=== PATIENT | male | born 1985 | race Caucasian/White ===

== ENCOUNTER 2019-11-12 18:33 | Emergency (ER) | payer SELFPAY ==
[2019-11-12] MEDS ORDERED: Bupivacaine 0.5% 10 ML SDV ONE (18:49)
--- NOTE | 2019-11-12 19:02 | EDM.PDOC ---
<Wilfredo Parson - Last Filed: 11/12/19 18:55> ED HPI GENERAL MEDICAL PROBLEM - General Chief Complaint: General Stated Complaint: PERSONAL ISSUE Time Seen by Provider: 11/12/19 18:55 - History of Present Illness INITIAL COMMENTS - FREE TEXT/NARRATIVE: History of present illness: [Presents with penis pain he states that for the last couple days he is been having trouble getting his glans to come out of his foreskin to urinate but today when he urinated his glans was stuck behind his foreskin and has become very swollen and painful he states is been this way for just about an hour he is in moderate pain no other complaints no other concerns he has a history of coronary artery disease with stents and he has a history of psoriasis.] Review of systems: As per history of present illness and below otherwise all systems reviewed and negative. Past medical history: As per history of present illness and as reviewed below otherwise noncontributory. Surgical history: As per history of present illness and as reviewed below otherwise noncontributory. Social history: No reported history of drug or alcohol abuse. Family history: As per history of present illness and as reviewed below otherwise noncontributory. Physical exam: HEENT: Atraumatic, normocephalic, pupils reactive, negative for conjunctival pallor or scleral icterus, mucous membranes moist, throat clear, neck supple, nontender, trachea midline. Lungs: Clear to auscultation, breath sounds equal bilaterally, chest nontender. Heart: S1S2, regular, negative for clicks, rubs, or JVD. Abdomen: Soft, nondistended, nontender. Negative for masses or hepatosplenomegaly. Negative for costovertebral tenderness. Pelvis: Stable nontender. Genitourinary: Deferred. Rectal: Deferred. Extremities: Atraumatic, negative for cords or calf pain. Neurovascular unremarkable. Neuro: Awake, alert, oriented. Cranial nerves II through XII unremarkable. Cerebellum unremarkable. Motor and sensory unremarkable throughout. Exam nonfocal. : Glans is truncated by the foreskin and it is hyperemic exquisitely tender and bleeding patient states it has only been this way for an hour. Diagnostics: [] Therapeutics: Tempted wants to manually retract the foreskin it is not possible due to patient pain and the severity of the paraphimosis [] Impression: Para phimosis [] Plan: We will anesthetized the penis with a dorsal block and attempt to reduce the foreskin again. If unsuccessful urology will be consulted [] Definitive disposition and diagnosis as appropriate pending reevaluation and review of above. - Related Data Allergies Allergy/AdvReac Type Severity Reaction Status Date / Time No Known Allergies Allergy Verified 11/12/19 18:47 Home Meds: Home Meds . [No Known Home Meds] 11/12/19 [History] ED ROS GENERAL - Review of Systems Review Of Systems: See Below ED EXAM, GENERAL - Physical Exam Exam: See Below Course - Vital Signs Text/Narrative:: 10 mils of 0.5% bupivacaine was placed dorsally at the base of the penis to perform a penile block. Patient tolerated the procedure well At 1904 I discussed the case with Dr. Moncada urology and he will see the patient Handed over to Dr. Noble at shift change Last Recorded V/S: Last Vital Signs Temp 98.1 F 11/12/19 18:43 Pulse 128 H 11/12/19 18:43 Resp 20 11/12/19 18:43 BP 198/120 H 11/12/19 18:43 Pulse Ox 97 11/12/19 18:43 - Orders/Labs/Meds Orders: Active Orders 24 hr Category Date Time Status CULTURE WOUND [RM] Stat Lab 11/12/19 20:38 Received Meds: Medications Discontinued Medications Generic Name Dose Route Start Last Admin Trade Name Freq PRN Reason Stop Dose Admin Bacitracin 5 dose 11/12/19 21:03 Bacitracin Oint 1 Gm TOP 11/12/19 21:04 ONETIME ONE Bupivacaine HCl Confirm 11/12/19 18:49 11/12/19 20:45 Sensorcaine-Mpf 0.5% Administered 11/12/19 18:50 Not Given Dose 10 ml .ROUTE .STK-MED ONE Bupivacaine HCl 10 ml 11/12/19 20:45 11/12/19 20:47 Sensorcaine-Mpf 0.5% INJECT 11/12/19 20:46 10 ml ONETIME ONE Administration Lidocaine HCl 10 ml 11/12/19 20:19 11/12/19 20:45 Xylocaine-Mpf 1% INJECT 11/12/19 20:20 Not Given ONETIME ONE Lidocaine HCl 10 ml 11/12/19 20:46 11/12/19 20:46 Xylocaine-Mpf 1% INJECT 11/12/19 20:47 5 ml ONETIME ONE Administration Departure - Departure Disposition: Home, Self-Care 01 Clinical Impression: Acquired phimosis of penis - Discharge Information Referrals: PCP,None [Primary Care Provider] - Forms: ED Department Discharge Sepsis Event Note - Evaluation Sepsis Screening Result: No Definite Risk - Focused Exam Vital Signs: Vital Signs Temp Pulse Resp BP Pulse Ox 11/12/19 18:43 98.1 F 128 H 20 198/120 H 97 Date Exam was Performed: 11/12/19 Time Exam was Performed: 18:56 - My Orders Last 24 Hours: My Active Orders 11/12/19 20:38 CULTURE WOUND [RM] Stat - Assessment/Plan Last 24 Hours: My Active Orders 11/12/19 20:38 CULTURE WOUND [RM] Stat <Jean-Paul Noble - Last Filed: 11/12/19 21:13> Course - Vital Signs Text/Narrative:: The patient was evaluated by the urologist in the ER department. I assisted the urologist's procedure. Was written a procedure note. Patient will be followed up with the urologist in 3 weeks. Patient given antibiotics and antibiotic ointment. During the procedure culture was taken appears to be puss extruded when he performed the procedure. Patient tolerated procedure well. Departure - Departure Time of Disposition: 21:13 Condition: Good Sepsis Event Note - Focused Exam Date Exam was Performed: 11/12/19 Time Exam was Performed: 21:09
[2019-11-12] MEDS ORDERED: Bupivacaine 0.5% 10 ML SDV INJECT ONE (20:45)
[2019-11-12] MEDS ORDERED: Bacitracin Oint 1 GM U/D Packet TOP ONE (21:03)
--- NOTE | 2019-11-13 09:31 | CONS ---
DATE OF CONSULTATION: 11/12/2019 DATE OF : 1985 PRIMARY CARE PHYSICIAN: None PCP A 34-year-old, whom I was called about him about an hour or so ago with paraphimosis. He is healthy otherwise. He has had phimosis for some time. I pulled the foreskin back, I was not able to pull it over. PHYSICAL EXAMINATION: The glans penis is swollen. There is a tight band of foreskin of phimosis right behind the head. It does not look possible to squeeze the head and bring the foreskin over, so I decided to cut the band vertically and suture it horizontally. The penis was then anesthetized using 1% lidocaine circumferentially about an inch or so proximal to where the cutting will need to be done. At that point, the tight band, which extended a good centimeter, was cut. The head was then pushed behind the foreskin and that cut that was made was closed horizontally using 3-0 chromic sutures. The patient tolerated that procedure well. A culture was made for what looked like purulent material coming out from that area at one point. The patient tolerated the procedure well and was sent home on Keflex 500 three times a day for 4 days, and bacitracin ointment to be applied to the cut. I will see him again in 3 weeks in the office. RUBEN BUTTS /[id number]
== END 2019-11-12 21:23 | disposition home or self-care (01) ==
LOC: MW.ED 18:33
DX: N47.1 Phimosis (principal)
CPT/HCPCS: 54450; 87070; 99284; J2001; J3490; 99282

== ENCOUNTER 2023-02-13 13:52 | Emergency (ER) | payer BC ==
[2023-02-13] MEDS ORDERED: Sodium Chloride 0.9% 10 ML Syringe FLUSH PRN (15:17)
[2023-02-13] MEDS ORDERED: Sodium Chloride 0.9% 2.5 ML Syringe FLUSH PRN (15:17)
[2023-02-13] MEDS ORDERED: Aspirin 81 MG Tab.Chew PO ONE (15:17)
[2023-02-13] MEDS ORDERED: Sodium Chloride 0.9% 1,000 ML IV ONE (15:17)
[2023-02-13] MEDS ORDERED: LORazepam 2 MG/ML SDV IVPUSH ONE ×2 (15:17→17:55)
[2023-02-13] MEDS ORDERED: chlordiazePOXIDE 25 MG Cap PO ONE ×2 (15:26→18:49)
[2023-02-13] MEDS ORDERED: PHENobarbital 32.4 MG Tab PO ONE ×2 (15:30→18:50)
[2023-02-13 15:39] LABS: BASOPHILS ABSOLUTE AUTO 0.1 K/uL (0.0-0.1); BASOPHILS PERCENT AUTO 1.3 % (0.0-1.5); EOSINOPHILS ABSOLUTE AUTO 0.1 K/uL (0.0-0.7); EOSINOPHILS PERCENT AUTO 1.1 % (0.0-7.0); HEMATOCRIT 44.3 % (38.0-50.0); HEMOGLOBIN 15.7 g/dL (13.0-17.0); LYMPHOCYTES ABSOLUTE AUTO 2.3 K/uL (0.6-2.4); LYMPHOCYTES PERCENT AUTO 32.3 % (16.0-40.0); MEAN CORPUSCULAR HEMOGLOBIN 34.1 pg (27.0-32.0); MEAN CORPUSCULAR HGB CONC 35.4 g/dL (31.0-37.0); MEAN CORPUSCULAR VOLUME 96.1 fL (80.0-98.0); MONOCYTES ABSOLUTE AUTO 0.7 K/uL (0.0-0.8); MONOCYTES PERCENT AUTO 9.9 % (0.0-15.0); NEUTROPHILS ABSOLUTE AUTO 3.9 K/uL (1.4-5.7); NEUTROPHILS PERCENT AUTO 55.4 % (48.0-80.0); NRBC ABSOLUTE 0 K/uL; PLATELET COUNT,PLT 226 K/uL (150-400); RED BLOOD CELL COUNT 4.61 M/uL (4.50-5.90); WHITE BLOOD CELL COUNT,WBC 6.96 K/uL (4.0-11.0)
[2023-02-13 15:47] LABS: INR 1.07 (0.86-1.11)
[2023-02-13 15:48] LABS: D-DIMER QUANTITATIVE < 0.19 mg/L FEU (0.00-0.50)
[2023-02-13 16:04] LABS: A/G RATIO 1.4 (0.9-1.6); ALANINE AMINOTRANSFERASE,ALT 308 IU/L (14-63); ALBUMIN 4.6 g/dL (3.4-5.0); ALKALINE PHOSPHATASE 60 U/L (46-116); ASPARTATE AMNIOTRANSFERASE,AST 159 IU/L (15-37); BLOOD UREA NITROGEN,BUN 19 mg/dL (7.0-18.0); CALCIUM 9.8 mg/dL (8.5-10.1); CARBON DIOXIDE,CO2 26.6 mmol/L (21.0-32.0); CHLORIDE,CL 100 mmol/L (98-107); CREATININE 0.6 mg/dL (0.8-1.3); GLUCOSE RANDOM 136 mg/dL (74-106); MAGNESIUM 1.2 mg/dL (1.8-2.4); PHOSPHORUS 3.8 mg/dL (2.6-4.7); POTASSIUM,K 3.8 mmol/L (3.5-5.1); SODIUM,NA 141 mmol/L (136-148); TSH ULTRASENSITIVE 1.45 uIU/mL (0.36-3.74)
[2023-02-13 16:05] LABS: ESTIMATED GFR 126 mL/min (>60)
[2023-02-13 16:06] LABS: ETHANOL BLOOD MEDICAL < 3.0 mg/dL
[2023-02-13 17:11] LABS: AMPHETAMINES SCREEN, URINE NEGATIVE (CUTOFF=500); BARBITURATE SCREEN,URINE NEGATIVE (CUTOFF=200); BENZODIAZEPINES SCREEN,URINE NEGATIVE (CUTOFF=150); BUPRENORPHINE SCREEN,URINE NEGATIVE (CUTOFF=10); METHADONE SCREEN, URINE NEGATIVE (CUTOFF=200); METHAMPHETAMINES SCREEN, URINE NEGATIVE (CUTOFF=500); OXYCODONE SCREEN,URINE NEGATIVE (CUT0FF=100); PCP SCREEN,URINE NEGATIVE (CUTOFF=25); PROPOXYPHENE SCREEN,URINE NEGATIVE (CUTOFF=300); THC SCREEN,URINE 20 NG/ML NEGATIVE (CUTOFF=50)
[2023-02-13] MEDS ORDERED: Magnesium Sulfate/Water 2 GM in Premix Bag 1 BAG IV ONE (17:42)
== END 2023-02-13 19:14 | disposition home or self-care (01) ==
LOC: MW.ED 13:52
DX: F10.231 Alcohol dependence with withdrawal delirium (principal); E83.42 Hypomagnesemia; F90.9 Attention-deficit hyperactivity disorder, unspecified type; E78.00 Pure hypercholesterolemia, unspecified; I10 Essential (primary) hypertension; E11.9 Type 2 diabetes mellitus without complications; Z79.84 Long term (current) use of oral hypoglycemic drugs; Z79.899 Other long term (current) drug therapy; Y90.0 Blood alcohol level of less than 20 mg/100 ml
CPT/HCPCS: 36415; 71045; 80053; 80305; 80307; 82947; 83735; 84100; 84443; 84484; 85025; 85379; 85610; 93005; 96361; 96365; 96375; 96376; 99285; A9270; J2060; J3475; J3490; J7030; 93010; 99284

== ENCOUNTER 2024-04-04 10:28 | Emergency (ER) | payer BC ==
[2024-04-04] MEDS: Meclizine 25 MG Tab PO ONE (11:01)
[2024-04-04] MEDS: Sodium Chloride 0.9% 1,000 ML IV ONE (11:02)
[2024-04-04] MEDS: Sodium Chloride 0.9% 2.5 ML Syringe FLUSH PRN (11:03)
[2024-04-04] MEDS: Sodium Chloride 0.9% 10 ML Syringe FLUSH PRN (11:03)
[2024-04-04 11:08] LABS: BASOPHILS ABSOLUTE AUTO 0.08 K/uL (0.00-0.20); BASOPHILS PERCENT AUTO 1.4 % (0.0-1.0); EOSINOPHILS ABSOLUTE AUTO 0.04 K/uL (0.00-0.45); EOSINOPHILS PERCENT AUTO 0.7 % (0.0-6.0); HEMATOCRIT 39.8 % (42.0-52.0); HEMOGLOBIN 14.3 g/dL (14.0-18.0); IMMATURE GRAN ABSOLUTE AUTO 0.01 K/uL (0.00-0.05); IMMATURE GRAN PERCENT AUTO 0.2 % (0.0-0.4); LYMPHOCYTES ABSOLUTE AUTO 1.21 K/uL (1.00-4.80); LYMPHOCYTES PERCENT AUTO 21.8 % (24.0-44.0); MEAN CORPUSCULAR HGB CONC 35.9 g/dL (32.0-36.0); MEAN CORPUSCULAR VOLUME 94.8 fL (83.0-99.0); MONOCYTES ABSOLUTE AUTO 0.54 K/uL (0.00-0.80); MONOCYTES PERCENT AUTO 9.7 % (0.0-8.0); NEUTROPHILS ABSOLUTE AUTO 3.68 K/uL (1.80-7.70); NEUTROPHILS PERCENT AUTO 66.2 % (41.0-71.0); PLATELET COUNT,PLT 254 K/uL (150-400); WHITE BLOOD CELL COUNT,WBC 5.56 K/uL (3.9-11.3)
[2024-04-04 11:37] LABS: A/G RATIO 1.4 (0.9-1.6); ALANINE AMINOTRANSFERASE,ALT 85 IU/L (14-63); ALBUMIN 4.5 g/dL (3.4-5.0); ALKALINE PHOSPHATASE 37 U/L (46-116); ASPARTATE AMNIOTRANSFERASE,AST 68 IU/L (15-37); BILIRUBIN TOTAL 0.7 mg/dL (0.2-1.0); BLOOD UREA NITROGEN,BUN 29 mg/dL (7.0-18.0); CALCIUM 9.5 mg/dL (8.5-10.1); CHLORIDE,CL 99 mmol/L (98-107); CREATININE 0.8 mg/dL (0.8-1.3); EST CRCL DRUG DOSING (CG) 138.72 mL/min; ESTIMATED GFR 115 mL/min (>60); ETHANOL BLOOD MEDICAL <3 mg/dL; GLUCOSE RANDOM 160 mg/dL (74-106); LIPASE 91 U/L (16-77); POTASSIUM,K 3.9 mmol/L (3.5-5.1); PROTEIN TOTAL,TP 7.8 g/dL (6.4-8.2); SODIUM,NA 138 mmol/L (136-148)
== END 2024-04-04 13:33 | disposition home or self-care (01) ==
LOC: MW.ED 10:28
DX: R42 Dizziness and giddiness (principal); F10.239 Alcohol dependence with withdrawal, unspecified; I10 Essential (primary) hypertension; E78.00 Pure hypercholesterolemia, unspecified; E11.9 Type 2 diabetes mellitus without complications; F17.210 Nicotine dependence, cigarettes, uncomplicated; Z79.84 Long term (current) use of oral hypoglycemic drugs; Z79.899 Other long term (current) drug therapy; Z90.49 Acquired absence of other specified parts of digestive tract; Z75.8 Other problems related to medical facilities and other health care
CPT/HCPCS: 36415; 80053; 80307; 83690; 85025; 93005; 96360; 99284; A9270; J3490; J7030

== ENCOUNTER 2024-06-12 18:21 | Emergency (ER) | payer BC ==
[2024-06-12 20:10] LABS: BASOPHILS ABSOLUTE AUTO 0.06 K/uL (0.00-0.20); BASOPHILS PERCENT AUTO 0.7 % (0.0-1.0); EOSINOPHILS ABSOLUTE AUTO 0.04 K/uL (0.00-0.45); EOSINOPHILS PERCENT AUTO 0.5 % (0.0-6.0); HEMOGLOBIN 13.7 g/dL (14.0-18.0); IMMATURE GRAN ABSOLUTE AUTO 0.03 K/uL (0.00-0.05); IMMATURE GRAN PERCENT AUTO 0.4 % (0.0-0.4); LYMPHOCYTES ABSOLUTE AUTO 1.09 K/uL (1.00-4.80); LYMPHOCYTES PERCENT AUTO 13.3 % (24.0-44.0); MEAN CORPUSCULAR HEMOGLOBIN 33.4 pg (28.0-32.0); MEAN CORPUSCULAR HGB CONC 35.1 g/dL (32.0-36.0); MEAN CORPUSCULAR VOLUME 95.1 fL (83.0-99.0); MEAN PLATELET VOLUME 8.8 fL (9.4-12.4); MONOCYTES ABSOLUTE AUTO 0.87 K/uL (0.00-0.80); MONOCYTES PERCENT AUTO 10.6 % (0.0-8.0); NEUTROPHILS ABSOLUTE AUTO 6.11 K/uL (1.80-7.70); NEUTROPHILS PERCENT AUTO 74.5 % (41.0-71.0); PLATELET COUNT,PLT 255 K/uL (150-400)
[2024-06-12 20:40] LABS: A/G RATIO 1.3 (0.9-1.6); ALBUMIN 4.1 g/dL (3.4-5.0); BILIRUBIN TOTAL 0.4 mg/dL (0.2-1.0); CALCIUM 9.7 mg/dL (8.5-10.1); CARBON DIOXIDE,CO2 29.9 mmol/L (21.0-32.0); CREATININE 0.7 mg/dL (0.8-1.3); EST CRCL DRUG DOSING (CG) 158.53 mL/min; POTASSIUM,K 3.6 mmol/L (3.5-5.1); PROTEIN TOTAL,TP 7.2 g/dL (6.4-8.2)
[2024-06-12 20:45] LABS: MAGNESIUM 1.6 mg/dL (1.8-2.4)
[2024-06-12 22:38] LABS: INR 1.16 (0.86-1.11); PTT,PARTIAL THROMBOPLSTIN TIME 27.9 SEC (23.9-30.7)
[2024-06-12 22:39] LABS: D-DIMER QUANTITATIVE < 0.19 mg/L FEU (0.00-0.50)
[2024-06-12 23:09] LABS: TSH ULTRASENSITIVE 3.26 uIU/mL (0.36-3.74)
[2024-06-12 23:52] LABS: AMPHETAMINES SCREEN, URINE NEGATIVE (CUTOFF=500); BARBITURATE SCREEN,URINE NEGATIVE (CUTOFF=200); BENZODIAZEPINES SCREEN,URINE NEGATIVE (CUTOFF=150); BUPRENORPHINE SCREEN,URINE NEGATIVE (CUTOFF=10); METHADONE SCREEN, URINE NEGATIVE (CUTOFF=200); METHAMPHETAMINES SCREEN, URINE NEGATIVE (CUTOFF=500); OXYCODONE SCREEN,URINE NEGATIVE (CUT0FF=100); PCP SCREEN,URINE NEGATIVE (CUTOFF=25); THC SCREEN,URINE 20 NG/ML NEGATIVE (CUTOFF=50)
[2024-06-13 00:01] LABS: APPEARANCE,URINE CLEAR; BILIRUBIN,URINE NEGATIVE (NEGATIVE); COLOR,URINE YELLOW; GLUCOSE,URINE NEGATIVE (NEGATIVE); KETONES,URINE NEGATIVE (NEGATIVE); LEUKOCYTE ESTERASE,URINE NEGATIVE (NEGATIVE); NITRITE,URINE NEGATIVE (NEGATIVE); OCCULT BLOOD,URINE NEGATIVE (NEGATIVE); PROTEIN,URINE NEGATIVE (NEGATIVE)
== END 2024-06-13 01:04 | disposition home or self-care (01) ==
LOC: MW.ED 18:21
DX: I10 Essential (primary) hypertension (principal); E78.00 Pure hypercholesterolemia, unspecified; E11.9 Type 2 diabetes mellitus without complications; F17.210 Nicotine dependence, cigarettes, uncomplicated; Z90.49 Acquired absence of other specified parts of digestive tract; Z79.899 Other long term (current) drug therapy; Z79.84 Long term (current) use of oral hypoglycemic drugs; Z75.8 Other problems related to medical facilities and other health care
CPT/HCPCS: 36415; 71045; 71045-26; 80053; 80305-QW; 80307; 81003; 83690; 83735; 84443; 84484; 85025; 85379; 85610; 85730; 93005; 99283; 99285

== ENCOUNTER 2025-04-02 13:10 | Emergency (ER) | payer BC ==
[2025-04-02] MEDS ORDERED: Sodium Chloride 0.9% 2.5 ML Syringe FLUSH PRN (14:31)
[2025-04-02] MEDS ORDERED: Sodium Chloride 0.9% 10 ML Syringe FLUSH PRN (14:31)
[2025-04-02 15:10] LABS: BASOPHILS ABSOLUTE AUTO 0.07 K/uL (0.00-0.20); BASOPHILS PERCENT AUTO 1.0 % (0.0-1.0); EOSINOPHILS ABSOLUTE AUTO 0.10 K/uL (0.00-0.45); EOSINOPHILS PERCENT AUTO 1.4 % (0.0-6.0); IMMATURE GRAN ABSOLUTE AUTO 0.02 K/uL (0.00-0.05); IMMATURE GRAN PERCENT AUTO 0.3 % (0.0-0.4); LYMPHOCYTES ABSOLUTE AUTO 1.42 K/uL (1.00-4.80); LYMPHOCYTES PERCENT AUTO 20.4 % (24.0-44.0); MEAN PLATELET VOLUME 9.0 fL (9.4-12.4); MONOCYTES ABSOLUTE AUTO 0.55 K/uL (0.00-0.80); MONOCYTES PERCENT AUTO 7.9 % (0.0-8.0); NEUTROPHILS ABSOLUTE AUTO 4.80 K/uL (1.80-7.70); NEUTROPHILS PERCENT AUTO 69.0 % (41.0-71.0); NRBC ABSOLUTE 0.00 K/uL (0.00-0.02); NRBC PERCENT 0.0 /100WBC (0.0-0.2); PLATELET COUNT,PLT 291 K/uL (150-400); RED BLOOD CELL COUNT 4.39 M/uL (4.52-5.90); WHITE BLOOD CELL COUNT,WBC 6.96 K/uL (3.9-11.3)
[2025-04-02 15:23] LABS: INR 1.17 (0.86-1.11); PTT,PARTIAL THROMBOPLSTIN TIME 28.9 SEC (23.9-30.7)
[2025-04-02 15:53] LABS: A/G RATIO 1.3 (0.9-1.6); ASPARTATE AMNIOTRANSFERASE,AST 20.0 IU/L (15-37); BLOOD UREA NITROGEN,BUN 21.0 mg/dL (7.0-18.0); CARBON DIOXIDE,CO2 27.7 mmol/L (21.0-32.0); CHLORIDE,CL 103.0 mmol/L (98-107); CREATININE 0.9 mg/dL (0.8-1.3); EST CRCL DRUG DOSING (CG) 122.07 mL/min; GLUCOSE RANDOM 109.0 mg/dL (74-106); POTASSIUM,K 3.7 mmol/L (3.5-5.1); PRO B-TYPE NATRIUR PEPT,BNPPRO 44.0 pg/mL (0-125); PROTEIN TOTAL,TP 7.5 g/dL (6.4-8.2); SODIUM,NA 143.0 mmol/L (136-148)
[2025-04-02 15:58] LABS: ESTIMATED GFR 110.0 mL/min (>60)
[2025-04-02 16:21] LABS: ALANINE AMINOTRANSFERASE,ALT 54.0 IU/L (14-63); BILIRUBIN TOTAL 0.4 mg/dL (0.2-1.0)
[2025-04-02] MEDS: Iopamidol 755 Mg/ML 100 ML Bottle IVPUSH ONE (17:40)
== END 2025-04-02 18:56 | disposition home or self-care (01) ==
LOC: MW.ED 13:10
DX: R07.9 Chest pain, unspecified (principal); I10 Essential (primary) hypertension; E78.00 Pure hypercholesterolemia, unspecified; E11.9 Type 2 diabetes mellitus without complications; Z90.49 Acquired absence of other specified parts of digestive tract; Z79.899 Other long term (current) drug therapy; Z79.84 Long term (current) use of oral hypoglycemic drugs
CPT/HCPCS: 36415; 71045; 74177; 80053; 82947; 83690; 83735; 83880; 84484; 85025; 85379; 85610; 85730; 93005; 99285; A9270; Q9967; 99283